=== PATIENT | female | born 1975 | race African-American/Black ===

== ENCOUNTER 2016-09-29 11:25 | Emergency (ER) | payer SELFPAY ==
[2016-09-29] MEDS ORDERED: METHYLPRED SOD SUCCINATE 125 MG VIAL ONE (12:44)
[2016-09-29] MEDS ORDERED: METHOCARBAMOL 750 MG TABLET ONE (12:44)
[2016-09-29 12:56] LABS: SPECIFIC GRAVITY 1.025 (1.001-1.030); URINE BILIRUBIN NEGATIVE (NEGATIVE); URINE BLOOD 4+ (NEGATIVE); URINE GLUCOSE (UA) NEGATIVE (NEGATIVE); URINE LEUKOCYTE ESTERASE NEGATIVE (NEGATIVE); URINE NITRITE NEGATIVE (NEGATIVE); URINE PROTEIN NEGATIVE (NEGATIVE); URINE UROBILINOGEN NORMAL (0-1 mg/dl)
[2016-09-29 12:59] LABS: HCG,QUALITATIVE URINE NEGATIVE
[2016-09-29 13:00] LABS: URINE APPEARANCE CLEAR; URINE COLOR YELLOW
[2016-09-29 13:04] LABS: URINE RBC 20-25 /hpf
[2016-09-29 13:05] LABS: URINE BACTERIA RARE; URINE WBC NEG /hpf
== END 2016-09-29 11:26 | disposition home or self-care (01) ==
LOC: ED 11:25
DX: M54.42 Lumbago with sciatica, left side (principal); R10.9 Unspecified abdominal pain
CPT/HCPCS: 81025; 81001; 99283 ×2; 96372; A9270; J2930